=== PATIENT | female | born 1975 | race Caucasian/White ===

== ENCOUNTER → 2017-07-16 | Outpatient (CLI) | payer BC ==
[2017-07-16 13:34] LABS: HEMOGLOBIN 12.6 g/dL (12.2-16.2); LYMPH # 2.1 K/mm3 (0.7-4.5); LYMPH % 41.1 % (10-50.0)
[2017-07-16 15:56] LABS: BUN 12 mg/dL (7-18)
[2017-07-16 16:18] LABS: GFR (ESTIMATED) 92 ML/MIN (59-)
== END ==
LOC: CARL-LAB 07:30
PROVIDERS: Psychiatry & Neurology Psychiatry
DX: F31.76 Bipolar disorder, in full remission, most recent episode depressed (principal)